=== PATIENT | female | born 1990 | race Caucasian/White ===

== ENCOUNTER → 2019-04-11 | Outpatient (CLI) | payer OTHER | LOC: EDBD 13:00 → MC.RAD 13:00 | DX: N63.20 Unspecified lump in the left breast, unspecified quadrant (principal) ==

== ENCOUNTER 2020-05-28 15:15 | Outpatient (RCR) | payer OTHER | END 2020-06-15 | disposition home or self-care (01) | LOC: WSST | DX: J38.2 Nodules of vocal cords (principal) ==

== ENCOUNTER 2020-07-09 15:15 | Outpatient (RCR) | payer OTHER | END 2020-09-08 | disposition home or self-care (01) | LOC: WSST | DX: R49.0 Dysphonia (principal); J38.2 Nodules of vocal cords ==